=== PATIENT | male | born 1980 | race Caucasian/White ===

== ENCOUNTER 2021-09-03 17:14 | Emergency (ER) | payer OTHER ==
[~2021-09-03] VITALS: Ht 188 cm; Wt 102.1 kg
[2021-09-03] MEDS ORDERED: ULTRAM50 MG PO (19:15)
[2021-09-03] MEDS ORDERED: CEPHALEXIN500 MG PO (19:15)
== END 2021-09-03 19:55 | disposition home or self-care (01) ==
LOC: ED 17:14
DX: S80.12XA Contusion of left lower leg, initial encounter (principal); Z88.2 Allergy status to sulfonamides; W22.8XXA Striking against or struck by other objects, initial encounter; Y93.39 Activity, other involving climbing, rappelling and jumping off
CPT/HCPCS: 73590; 90471; 99283-25

== ENCOUNTER 2024-08-31 20:02 | Emergency (ER) | payer OTHER ==
[~2024-08-31] VITALS: Ht 188 cm; Wt 117.9 kg
[~2024-08-31 20:02] MED LIST: CEPHALEXIN500 MG PO; ULTRAM50 MG PO
[2024-08-31] MEDS ORDERED: FLONASE ALLERG9.9 ML (20:16)
[2024-08-31] MEDS ORDERED: AMOX TR-K CLV1 EAC1 PO (20:35)
[2024-08-31 20:45] VITALS: BP 153/108
[2024-08-31] MEDS ORDERED: TRAMADOL HCL 50 MG HOME.PACK PO ONE (20:45)
[2024-08-31] MEDS ORDERED: AMOXICILLIN/CLAVULANATE K 875 MG HOME.PACK PO ONE (20:45)
[2024-08-31] MEDS ORDERED: methylPREDNISolone 4 MG HOME.PACK PO ONE (20:45)
== END 2024-08-31 20:57 | disposition home or self-care (01) ==
LOC: ED 20:02
DX: H66.92 Otitis media, unspecified, left ear (principal); H69.82 Other specified disorders of Eustachian tube, left ear; Z88.2 Allergy status to sulfonamides
CPT/HCPCS: 99282; A9270